=== PATIENT | female | born 1945 | race Caucasian/White ===

== ENCOUNTER 2016-10-15 15:41 | Emergency (ER) | payer MEDICARE ==
[~2016-10-15] VITALS: Ht 149.9 cm; Wt 87.7 kg
[2016-10-15 15:50] VITALS: BP 169/77; PULSE 92; RESP 16; TEMP 98.1; O2SAT 98
[2016-10-15] MEDS ORDERED: HYDR12.57 PO (17:23)
[2016-10-15] MEDS ORDERED: IBUP800T23 PO (17:23)
[2016-10-15] MEDS ORDERED: MAGN400T2 PO (17:23)
[2016-10-15] MEDS ORDERED: ENAL20TA PO (17:23)
[2016-10-15] MEDS ORDERED: VITA400T14 PO (17:23)
[2016-10-15] MEDS ORDERED: ASPI1TAB69 PO (17:23)
[2016-10-15] MEDS ORDERED: MEDR4PAK PO (18:05)
[2016-10-15] MEDS ORDERED: ROBA500T PO (18:05)
--- NOTE | 2016-10-15 18:07 | PD ---
HPI Chief Complaint: Pain: Acute or Chronic Time Seen by Provider: 18:02 Travel History International Travel<30 days: No Contact w/Intl Traveler<30days: No Traveled to known affect area: No History of Present Illness HPI 70-year-old female presents to the emergency Department with complaint of bilateral knee pain and low back pain that started this morning. She has history of chronic low back pain and chronic bilateral knee pain. She denies new or recent injury. History of right knee surgery. History of arthritis and bilateral knees. Right knee is hurting worse than left. Denies paresthesias, loss of sensation, decreased range of motion, decreased strength bilateral lower extremities. Is using her cane, as normal, for support with ambulation. Low back pain is consistent with past exacerbations of low back pain. She did have urinary tract infection 2 weeks ago and was treated with antibiotics by her primary care provider. She denies urinary symptoms at this time. Denies encopresis, incontinence, saddle anesthesias. Has fever, chills, nausea, vomiting. Denies abdominal pain. Denies cancer. Denies IV drug use. No other modifying factors or associated signs and symptoms. PFSH Social History Tobacco Use: No Allergies-Medications (Allergen,Severity, Reaction): Coded Allergies: Avelox (Verified Allergy, Unknown, 10/15/16) Aztreonam (Verified Allergy, Unknown, 10/15/16) Carbamazepine (Verified Allergy, Unknown, 10/15/16) Cephalosporins (Verified Allergy, Unknown, 10/15/16) Penicillin (Verified Allergy, Unknown, 10/15/16) Reported Meds & Prescriptions Reported Meds & Active Scripts Active Robaxin (Methocarbamol) 500 Mg Tab 500 Mg PO QID PRN Medrol Dosepak (Methylprednisolone) 4 Mg Dspk 4 Mg PO DIRECTED Per Pharmacist direction Reported Aspirin 81 Mg Tabdr 81 Mg PO DAILY Magnesium Oxide 400 Mg Tab 400 Mg PO DAILY Vitamin D2 (Ergocalciferol) 400 Unit Tab 400 Units PO DAILY Ibuprofen 800 Mg Tab 800 Mg PO QID Enalapril (Enalapril Maleate) 20 Mg Tab 20 Mg PO DAILY Hydrochlorothiazide 12.5 Mg Cap 12.5 Mg PO DAILY Review of Systems Except as stated in HPI: all other systems reviewed are Neg Physical Exam Narrative GENERAL: Well-nourished, well-developed elderly, female patient, in no acute distress SKIN: Warm and dry. HEAD: Atraumatic. Normocephalic. EYES: Pupils equal and round. No scleral icterus. No injection or drainage. ENT: Mucosa pink and moist. Airway patent. NECK: Trachea midline. CARDIOVASCULAR: Regular rate and rhythm. No murmur appreciated. RESPIRATORY: No accessory muscle use. Breath sounds clear and equal bilaterally. GASTROINTESTINAL: Abdomen soft, non-tender, nondistended. Positive bowel sounds. No hepato-splenomegaly, or palpable masses. No guarding. MUSCULOSKELETAL: Bilateral knees are nonerythematous and nonedematous; with full range of motion and flexion to 90; joint is stable with negative drawer test; no obvious deformities; no tenderness on palpation bilaterally. Bilateral lower extremities supple and non-tense with 2+ pedal pulses and sensory intact; with full range of motion and 5/5 strength. Active dorsiflexion and extension of bilateral feet. 2+ DTRs bilaterally. Bilateral straight leg raise is negative for low back pain. Ambulatory with normal gait with assistance with a cane. Sitting up in bed at 90. No obvious deformities. No clubbing. No cyanosis. No edema. BACK: No midline point tenderness on palpation of the lumbar spine. Tenderness on palpation of bilateral iliosacral area. No obvious deformities. NEUROLOGICAL: Awake and alert. Oriented 3. No obvious cranial nerve deficits. Motor grossly within normal limits. Normal speech. Moves all extremities. 5/5 strength to all extremities. Sensory intact. PSYCHIATRIC: Appropriate mood and affect; insight and judgment normal. Data Data Last Documented VS Vital Signs Date Time Temp Pulse Resp B/P Pulse Ox O2 Delivery O2 Flow Rate FiO2 10/15/16 15:50 98.1 92 16 169/77 98 Orders Urinalysis - C+S If Indicated (10/15/16 18:07) Ketorolac Inj (Toradol Inj) (10/15/16 18:15) Labs Laboratory Tests Test 10/15/16 18:15 Urine Color YELLOW Urine Turbidity CLEAR Urine pH 5.5 Urine Specific Rector 1.018 Urine Protein NEG mg/dL Urine Glucose (UA) NEG mg/dL Urine Ketones NEG mg/dL Urine Occult Blood TRACE Urine Nitrite NEG Urine Bilirubin NEG Urine Urobilinogen LESS THAN 2.0 MG/DL Urine Leukocyte Esterase SMALL Urine RBC LESS THAN 1 /hpf Urine WBC 5 /hpf Urine Squamous Epithelial <1 /hpf Cells Urine Mucus FEW /lpf Microscopic Urinalysis Comment CULT NOT INDICATED MDM Medical Decision Making Medical Screen Exam Complete: Yes Emergency Medical Condition: Yes Medical Record Reviewed: Yes Differential Diagnosis Arthritis, acute exacerbation of chronic low back pain, knee pain Narrative Course 70-year-old female with history of arthritis in bilateral knees and chronic low back pain with acute exacerbation of chronic low back pain and bilateral knee pain. She was treated for a urinary tract infection 2 weeks ago. She denies urinary symptoms. I will check a urinalysis to rule out UTI. Toradol administered in the ER. Patient's that she has received steroids in the past for her knee pain with good relief and is requesting a Medrol Dosepak. 190: Urinalysis without signs of infection. Medrol Dosepak, Robaxin prescribed for home. Patient has 800 mg ibuprofens at home for pain. Patient is medically cleared and stable for discharge. Discussed reasons to return to the emergency department. Instructed patient to follow up with primary care provider. Patient agrees with treatment plan. The patients vital signs are stable and the patient is stable for outpatient follow-up and treatment. Patient discharged home, stable and in no acute distress. Diagnosis Primary Impression: Bilateral knee pain Qualified Code: M25.561 - Pain in both knees, unspecified chronicity Additional Impression: Acute exacerbation of chronic low back pain Referrals: Primary Care Physician Patient Instructions: Acute Low Back Pain (ED), Arthritis (ED), General Instructions, Knee Pain (ED) Additional Instructions: Tylenol or ibuprofen as directed and as needed for pain Robaxin as prescribed and as needed for muscle spasms Heating pad and/or ice to affected area to reduce pain Avoid aggravating activities; increase activity as tolerated Knee braces as needed for support Walker or cane as needed for support Follow-up with primary care provider Follow-up with orthopedic as needed Return to emergency department immediately with worsening of symptoms Med/Other Pt SpecificInfo: Prescription(s) given Scripts Folding Walker/5" Wheels 1 Mis Mis #1 Ea .route As Directed Prov:Jacklyn Oliva 10/15/16 Methocarbamol (Robaxin)500 Mg [id number] Mg PO QID PRN (MUSCLE SPASM) #30 TAB Ref 0 Prov:Jacklyn Oliva 10/15/16 Methylprednisolone Dosepak (Medrol Dosepak)4 Mg Dspk4 Mg PO DIRECTED #1 DSPK Ref 0 Per Pharmacist direction Prov:Jacklyn Oliva 10/15/16 Disposition: 01 DISCHARGE HOME Condition: Stable Jacklyn Oliva Oct 15, 2016 18:07
[2016-10-15] MEDS ORDERED: KETOROLAC TROMETHAMINE 60 MG/2 ML (IM) VIAL IM ONE (18:15)
[2016-10-15 18:29] LABS: BLOOD, URINE TRACE (NEG); COMMENT (UR) CULT NOT INDICATED; CULTURE IF INDICATED CULT NOT INDICATED; GLUCOSE,URINE NEG (NEG); KETONE, URINE NEG (NEG); MUCUS URINE FEW /lpf (OCC); NITRITE,URINE NEG (NEG); PH, URINE 5.5 (5.0-8.5); SQUAMOUS EPITHELIAL CELL URINE <1 /hpf (0-5); URINE COLOR YELLOW (YELLW/STRAW)
[2016-10-15] MEDS ORDERED: MISC-274 (19:10)
[2016-10-15 19:23] VITALS: BP 161/74; TEMP 98.5
== END 2016-10-15 19:32 | disposition home or self-care (01) ==
LOC: NEPB 15:41
DX: M25.561 Pain in right knee (principal); M25.562 Pain in left knee; M54.5 Low back pain; G89.29 Other chronic pain
CPT/HCPCS: 81001; 96372; 99283; J1885